=== PATIENT | female | born 1995 | race African-American/Black ===

== ENCOUNTER 2018-11-08 19:50 | Emergency (ER) | payer OTHER, SELFPAY ==
--- OUTSIDE RECORDS SUMMARY | 2018-11-08 19:53 | XMS REPORT | Clinical Summary ---
:1995 Author Organization [facility] Address [address] [place] [address] Care Team Providers Name Role Phone Asked, No Pcp Primary Care Provider Unavailable Allergies No Known Allergies Medications Medication Sig Dispensed Refills Start Date End Date Status etonogestrel/ethinyl Insert into the 0 Active estradiol (NUVARING vagina every 21 VAGL) days. cephalexin (KEFLEX) Take 1 capsule 28 capsule 0 07/24/2018 07/31/2018 500 MG (500 mg total) capsuleIndications: by mouth 4 Pilonidal cyst (four) times a day for 7 days. Active Problems Not on file Encounters Date Type Specialty Care Team Description 08/08/2018 Telephone General Surgery Donna Hanson MA 07/24/2018 Pre-Admit Testing Pre-Admission Shasha Smithop testing Appointment Testing MD Anjana (Primary Dx) 07/24/2018 Office Visit General Surgery Anika Jackson Pilonidal cyst SHARMAINE Sandoval (Primary Dx) after 11/07/2017 Social History Tobacco Use Types Packs/Day Years Used Date Never Smoker Smokeless Tobacco: Never Used Alcohol Use Drinks/Week oz/Week Comments Yes 0-1 Standard drinks or equivalent 0.0 - 0.6 Alcohol Habits Answer Date Recorded How often do you have a drink containing alcohol? 2-3 times a week 07/23/2018 How many drinks containing alcohol do you have on a 1 or 2 07/23/2018 typical day when you are drinking? How often do you have six or more drinks on one Never 07/23/2018 occasion? Physical Activity Answer Date Recorded On average, how many days per week do you engage in moderate to 0 days 2018 strenuous exercise (like walking fast, running, jogging, dancing, swimming, biking, or other activities that cause a light or heavy sweat)? On average, how many minutes do you engage in exercise at this 0 min 2018 level? Stress Answer Date Recorded Do you feel stress - tense, restless, nervous, or anxious, Not at all 2018 or unable to sleep at night because your mind is troubled all the time - these days? Financial Resource Strain Answer Date Recorded How hard is it for you to pay for the very basics like Not hard at all 2018 food, housing, medical care, and heating? Food Insecurity Answer Date Recorded Within the past 12 months, you worried that your food would Never true 2018 run out before you got money to buy more. Within the past 12 months, the food you bought just didn't Never true 2018 last and you didn't have money to get more. Transportation Needs Answer Date Recorded In the past 12 months, has lack of transportation kept you from No 07/23/2018 medical appointments or from getting medications? In the past 12 months, has lack of transportation kept you from No 07/23/2018 meetings, work, or getting things needed for daily living? Sex Assigned at Date Recorded Not on file Job Start Date Occupation Industry Not on file Not on file Not on file Travel History Travel Start Travel End No recent travel history available. Last Filed Vital Signs Vital Sign Reading Time Taken Blood Pressure 122/67 07/24/2018 5:15 PM CDT Pulse 95 07/24/2018 5:15 PM CDT Temperature 36.6 C (97.9 F) 07/24/2018 5:15 PM CDT Respiratory Rate 16 07/24/2018 5:15 PM CDT Oxygen Saturation 98% 07/24/2018 5:15 PM CDT Inhaled Oxygen Concentration - - Weight 82.1 kg (180 lb 14.4 oz) 07/24/2018 5:15 PM CDT Height 152.4 cm (5') 07/24/2018 5:15 PM CDT Body Mass Index 35.33 07/24/2018 5:15 PM CDT Plan of Treatment Health Maintenance Due Date Last Done Comments CHLAMYDIA SCREENING 2012 INFLUENZA VACCINE 12/05/2018 Procedures Procedure Name Priority Date/Time Associated Diagnosis Comments ESTIMATED GFR Routine 07/24/2018 5:35 PM Results for this CDT procedure are in the results section. HCG QUALITATIVE, Routine 07/24/2018 5:35 PM Preop testing Results for this SERUM SCREEN CDT procedure are in the results section. BASIC METABOLIC Routine 07/24/2018 5:35 PM Preop testing Results for this PANEL CDT procedure are in the results section. HC COMPLETE BLD Routine 07/24/2018 5:35 PM Preop testing Results for this COUNT W/AUTO DIFF CDT procedure are in the results section. after 11/07/2017 Results Estimated GFR (07/24/2018 5:35 PM CDT) Pathologist [facility] Estimated GFR >=90 mL/min/1.73 [facility] Comment: m2 HOSPITAL CatergoryUnitsInterpretation G1 >=90 Normal or high G2 60-89Mildly decreased [id number] to moderately decreased [id number] to severely decreased G4 15-29Severely decreased G5 <15Kidney failure The eGFR was calculated using the Chronic Kidney Disease Epidemiology Collaboration (CKD-EPI) equation. Interpretation is based on recommendations of the National Kidney Foundation-Kidney Disease Outcomes Quality Initiative (NKF-KDOQI) published in 2014. Specimen Plasma specimen Performing Organization Address City/State/Zipcode Phone Number [facility] DEPARTMENT OF PATHOLOGY AND [address] [place] [address] GENOMIC MEDICINE [address] [address] CBC with platelet and differential (07/24/2018 5:35 PM CDT) [facility] WBC 7.05 4.50 - 11.00 [facility] k/uL [facility] RBC 4.37 4.20 - 5.50 [facility] m/[facility] HGB 13.1 12.0 - 16.0 [facility] g/dL [facility] HCT 39.3 37.0 - 47.0 % [facility] MCV 89.9 82.0 - 100.0 [facility] MCH 30.0 27.0 - 34.0 pg [facility] MCHC 33.3 31.0 - 37.0 [facility] g/dL [facility] RDW - SD 42.5 37.0 - 55.0 fL [facility] MPV 9.4 8.8 - 13.2 fL [facility] Platelet count 345 150 - 400 k/uL [facility] Nucleated RBC 0.00 /100 WBC [facility] Neutrophils 64.6 39.0 - 69.0 % [facility] Lymphocytes 27.4 25.0 - 45.0 % [facility] Monocytes 5.7 0.0 - 10.0 % [facility] Eosinophils 1.7 0.0 - 5.0 % [facility] Basophils 0.3 0.0 - 1.0 % [facility] Immature granulocytes 0.3Comment: 0.0 - 1.0 % [facility] granulocytes" (promyelocytes , myelocytes, metamyelocytes ) Specimen Blood Performing Organization Address City/State/Zipcode Phone Number [facility] DEPARTMENT OF PATHOLOGY AND [address] [place] [phone] hCG qualitative, serum screen (07/24/2018 5:35 PM CDT) [facility] hCG qualitative, NegativeComment: [facility] serum Sensitivity of [facility] test: 25 mIU/mL Specimen Blood Performing Organization Address City/[facility] Phone Number [facility] DEPART[facility] OF [facility]OLOGY AND [address] [place] [phone] Basic metabolic panel (07/24/2018 5:35 PM CDT) [facility] Sodium 140 135 - 148 mEq/L [facility] Potassium 4.3 3.5 - 5.0 mEq/L [facility] Chloride 103 98 - 112 mEq/L [facility] CO2 25 24 - 31 mEq/L [facility] Anion gap 12@ANIO 7 - 15 mEq/L [facility] BUN 12 6 - 20 mg/dL [facility] Creatinine 0.78 0.50 - 0.90 mg/dL [facility] Glucose 93 65 - 99 mg/dL [facility] Calcium 9.3 8.3 - 10.2 mg/dL [facility] Specimen Plasma specimen Performing Organization Address City/State/Zipcode Phone Number [facility] DEPARTMENT OF PATHOLOGY AND [address] [place] [phone] [address] after 11/07/2017 ([place]) [place] [address] Advance Directives Patient has advance care planning documents on file. For more information, please contact:Candelario Garcia[address] [place] [address]
--- OUTSIDE RECORDS SUMMARY | 2018-11-08 19:53 | XMS REPORT | Continuity of Care Document ---
:1995 Author Organization [email or web address] [facility] Care Team Providers Name Role Phone [address] Unavailable Unavailable Problems No Data Provided for This Section Medications No Data Provided for This Section Allergies, Adverse Reactions, Alerts No Known Medication Allergies Immunizations No Data Provided for This Section Results No Data Provided for This Section Pathology Reports No Data Provided for This Section Diagnostic Reports No Data Provided for This Section Consultation Notes No Data Provided for This Section Discharge Summaries No Data Provided for This Section History and Physicals No Data Provided for This Section Vital Signs No Data Provided for This Section Encounters Location Location Encounter Encounter Reason Attending ADM DC Status Source Details Type Number For Provider Date Date Visit Outpatient [id number] [facility] 05/[address] [facility] [place] [id number] [place] Procedures No Data Provided for This Section Assessment and Plan No Data Provided for This Section Plan of Care No Data Provided for This Section Social History No Data Provided for This Section Family History No Data Provided for This Section Advance Directives No Data Provided for This Section Functional Status No Data Provided for This Section
[2018-11-08] MEDS ORDERED: DIPHENOX/ATROP SULF 1 TAB PO ONE (21:00)
[2018-11-08] MEDS ORDERED: MORPHINE 4 MG/ML SYR ONE (21:01)
[2018-11-08] MEDS ORDERED: ONDANSETRON 4 MG/2 ML VIAL ONE (21:01)
[2018-11-08] MEDS ORDERED: NA CHLORIDE 0.9% 2,000 ML ONE (21:01)
[2018-11-08 21:08] LABS: Absolute Lymphocytes (CBC) 0.7 K/uL (0.7-4.9); Basophils % 0.2 % (0-1.3); Eosinophils % 0.6 % (0-4.4); Hematocrit 45.7 % (36.0-45.0); Lymphocytes % 10.4 % (15.3-44.8); MPV 7.5 fL (7.6-11.3); Monocytes % 5.1 % (3.3-12.3); RBC Red Blood Cell Count 5.15 M/uL (3.86-4.86)
[2018-11-08 21:17] LABS: Urine Appearance CLEAR; Urine Bilirubin NEGATIVE (NEG); Urine Blood 2+ (NEG); Urine Color YELLOW; Urine Glucose NEGATIVE (NEG); Urine Protein TRACE (NEG); Urine Specific Gravity >=1.030 (1.005-1.030); Urine Urobilinogen 0.2 mg/dL (0.2-1.0)
[2018-11-08 21:18] LABS: Urine Microscopic Reflex ORDER UMIC
[2018-11-08 21:22] LABS: Urine Specific Gravity >1.030 (1.005-1.030)
[2018-11-08 21:24] LABS: ALT/SGPT 27 U/L (12-78); AST/SGOT 13 U/L (15-37); Alkaline Phosphatase 63 U/L (45-117); BUN Blood Urea Nitrogen 9 mg/dL (7-18); Bicarbonate 27 mmol/L (21-32); Bilirubin Direct 0.1 mg/dL (0-0.2); Bilirubin Total 0.4 mg/dL (0.2-1.0); Glucose Level 92 mg/dL (74-106); Lipase 94 U/L (73-393); Potassium 3.7 mmol/L (3.5-5.1); Protein, Total 8.6 g/dL (6.4-8.2); Sodium Level 136 mmol/L (136-145)
[2018-11-08 21:43] LABS: Urine Bacteria <20 /HPF (<20); Urine Culture Reflex Order NOT NEEDED; Urine RBC <5 /HPF (NONE SEEN)
--- NOTE | 2018-11-08 22:15 | EDPHYS ---
Physician Documentation [facility] Name: Renetta Robles Age: 23 yrs Sex: Female : 1995 Arrival Date: 11/08/2018 Time: 19:58 Bed 17 Private MD: ED Physician Eric Davis HPI: 11/08 20:38 This 23 yrs old Black Female presents to ER via Ambulatory with complaints of Diarrhea, pkl Vomiting, Abdominal Pain. 20:38 The patient presents to the emergency department with nausea, that is moderate, pkl vomiting, diarrhea. Onset: The symptoms/episode began/occurred last night. Associated signs and symptoms: Pertinent positives: abdominal pain. 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 - Social history:: Smoking status: Patient/guardian denies using tobacco. - Ebola Screening: : No symptoms or risks identified at this time. ROS: 20:38 Eyes: Negative for injury, pain, redness, and discharge, ENT: Negative for injury, pkl pain, and discharge, Neck: Negative for injury, pain, and swelling, Cardiovascular: Negative for chest pain, palpitations, and edema, Respiratory: Negative for shortness of breath, cough, wheezing, and pleuritic chest pain. 20:38 Abdomen/GI: Positive for abdominal pain, nausea, vomiting, and diarrhea, of the right upper quadrant, left upper quadrant, right lower quadrant and left lower quadrant. 20:38 Back: Negative for acute changes. 20:38 : Negative for urinary symptoms. 20:38 MS/extremity: Negative for acute changes. 20:38 Skin: Negative for rash. 20:38 Neuro: Negative for altered mental status. Exam: 20:38 Head/Face: Normocephalic, atraumatic. Eyes: Pupils equal round and reactive to light, pkl extra-ocular motions intact. Lids and lashes normal. Conjunctiva and sclera are non-icteric and not injected. Cornea within normal limits. Periorbital areas with no swelling, redness, or edema. ENT: Nares patent. No nasal discharge, no septal abnormalities noted. Tympanic membranes are normal and external auditory canals are clear. Oropharynx with no redness, swelling, or masses, exudates, or evidence of obstruction, uvula midline. Mucous membranes moist. Neck: Trachea midline, no thyromegaly or masses palpated, and no cervical lymphadenopathy. Supple, full range of motion without nuchal rigidity, or vertebral point tenderness. No Meningismus. Chest/axilla: Normal chest wall appearance and motion. Nontender with no deformity. No lesions are appreciated. Cardiovascular: Regular rate and rhythm with a normal S1 and S2. No gallops, murmurs, or rubs. Normal PMI, no JVD. No pulse deficits. Respiratory: Lungs have equal breath sounds bilaterally, clear to auscultation and percussion. No rales, rhonchi or wheezes noted. No increased work of breathing, no retractions or nasal flaring. 20:38 Abdomen/GI: Bowel sounds: active, Palpation: soft, mild abdominal tenderness, in all quadrants. 20:38 Back: Exam negative for acute changes. 20:38 : Exam negative for acute changes. 20:38 Musculoskeletal/extremity: Exam is negative for acute changes. 20:38 Skin: Exam negative for rash. 20:38 Neuro: Orientation: is normal, Mentation: is normal, Cranial nerves: grossly normal, Motor: is normal. Vital Signs: 20:26 BP 121 / 85; Pulse 111; Resp 16; Temp 100.2; Pulse Ox 100% on R/A; Weight 79.83 kg (R); ak1 Height 5 ft. 0 in. (152.40 cm) (R); Pain 8/10; 21:33 BP 121 / 81; Pulse 104; Resp 16; Pulse Ox 99% on R/A; ak1 20:26 Body Mass Index 34.37 (79.83 kg, 152.40 cm) ak1 MDM: 20:23 Patient medically screened. pkl 22:13 Data reviewed: vital signs, nurses notes, lab test result(s). pkl 11/08 20:37 Order name: Basic Metabolic Panel; Complete Time: 21:59 pkl 11/08 20:37 Order name: CBC with Diff; Complete Time: 21:59 pkl 11/08 20:37 Order name: Creatinine for Radiology; Complete Time: 21:59 pkl 11/08 20:37 Order name: Hepatic Function; Complete Time: 21:59 pkl 11/08 20:37 Order name: Lipase; Complete Time: 21:59 pkl 11/08 20:37 Order name: UA; Complete Time: 21:59 pkl 11/08 21:11 Order name: Urine --Ancillary (enter results); Complete Time: 21:59 cm6 11/08 21:19 Order name: Urine Microscopic Only; Complete Time: 21:59 EDMS 11/08 20:37 Order name: IV Saline Lock; Complete Time: 21:10 pkl 11/08 20:37 Order name: Labs collected and sent; Complete Time: 21:10 pkl Administered Medications: 21:09 Drug: morphine 4 mg Route: IVP; Site: right antecubital; ak1 21:40 Follow up: Response: No adverse reaction ak1 21:09 Drug: Zofran 4 mg Route: IVP; Site: right antecubital; ak1 21:40 Follow up: Response: No adverse reaction ak1 21:09 Drug: LoMOTIL 2 tabs Route: PO; ak1 21:40 Follow up: Response: No adverse reaction ak1 21:10 Drug: NS 0.9% 1000 ml Route: IV; Rate: 1000 ml; Site: right antecubital; ak1 21:39 Follow up: IV Status: Completed infusion; IV Intake: 1000ml ak1 21:10 Drug: NS 0.9% 1000 ml Route: IV; Rate: 125 ml/hr; Site: right antecubital; ak1 22:50 Follow up: IV Status: Order to discontinue infusion ak1 22:14 Drug: NS 0.9% 500 ml Route: IV; Rate: bolus; Site: right antecubital; ak1 22:34 Follow up: IV Status: Completed infusion; IV Intake: 500ml ak1 22:49 Drug: Demerol 50 mg Route: IVP; Site: right antecubital; ak1 22:49 Follow up: Response: No adverse reaction ak1 Disposition: 11/08/18 22:14 Discharged to Home. Impression: Gastroenteritis. - Condition is Stable. - Prescriptions for Zofran 4 mg Oral Tablet - take 1 tablet by ORAL route every 12 hours As needed; 6 tablet. Lomotil 2.5- 0.025 mg Oral Tablet - take 2 tablets by ORAL route once daily As needed; 6 tablet. - Work release form, Medication Reconciliation Form, Thank You Letter, Antibiotic Education, Prescription Opioid Use, Family Work Release form. - Follow up: Private Physician; When: 2 - 3 days; Reason: Re-evaluation by your physician. - Problem is new. - Symptoms have improved. Signatures: Dispatcher [employer] [facility] Eric Davis MD MD pkl Purvi Rodriguez, RN RN ak1 Corrections: (The following items were deleted from the chart) 21:23 21:15 URINE DIPSTICK--ANCILLARY+U.LAB.BRZ ordered. [facility] EDSC 22:53 22:14 11/08/2018 22:14 Discharged to Home. Impression: Gastroenteritis. Condition is ak1 Stable. Forms are Medication Reconciliation Form, Thank You Letter, Antibiotic Education, Prescription Opioid Use. Follow up: Private Physician; When: 2 - 3 days; Reason: Re-evaluation by your physician. Problem is new. Symptoms have improved. pkl
--- NOTE | 2018-11-08 22:15 | ER ---
Nurse's Notes [facility] Name: Renetta Robles Age: 23 yrs Sex: Female : 1995 Arrival Date: 11/08/2018 Time: 19:58 Bed 17 Private MD: Diagnosis: Gastroenteritis Presentation: 11/08 20:27 Presenting complaint: Patient states: N/V/D abd cramps since 199. pt stated vomited 3 ak1 times since 199, multiple episodes of diarrhea. Transition of care: patient was not received from another setting of care. Onset of symptoms was November 08, 2018. Risk Assessment: Do you want to hurt yourself or someone else? Patient reports no desire to harm self or others. Initial Sepsis Screen: Does the patient meet any 2 criteria? No. Patient's initial sepsis screen is negative. Does the patient have a suspected source of infection? No. Patient's initial sepsis screen is negative. Care prior to arrival: None. 20:27 Method Of Arrival: Ambulatory ak1 20:27 Acuity: [place] 3 ak1 Triage Assessment: 20:30 General: Appears uncomfortable, Behavior is calm, cooperative. Pain: Complains of pain ak1 in abdomen. EENT: No signs and/or symptoms were reported regarding the EENT system. Neuro: No deficits noted. Cardiovascular: No deficits noted. Respiratory: No deficits noted. GI: Abdomen is round non-distended, Bowel sounds present X 4 quads. Reports diarrhea, nausea, vomiting. : No signs and/or symptoms were reported regarding the genitourinary system. Derm: No signs and/or symptoms reported regarding the dermatologic system. Musculoskeletal: No signs and/or symptoms reported regarding the musculoskeletal system. 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 - Social history:: Smoking status: Patient/guardian denies using tobacco. - Ebola Screening: : No symptoms or risks identified at this time. Screenin:30 Abuse screen: Denies threats or abuse. Denies injuries from another. Nutritional ak1 screening: No deficits noted. Tuberculosis screening: No symptoms or risk factors identified. Fall Risk None identified. Assessment: 21:11 Reassessment: Patient appears in no apparent distress at this time. No changes from ak1 previously documented assessment. Patient is alert, oriented x 3, equal unlabored respirations, skin warm/dry/pink. see triage assessment. 21:41 Reassessment: Patient appears in no apparent distress at this time. No changes from ak1 previously documented assessment. Patient and/or family updated on plan of care and expected duration. Pain level reassessed. Patient states feeling better. pt resting with eyes closed, resp even and unlabored. . 22:52 Reassessment: pt pain decreased. no vomiting or diarrhea noted while in ER. pt with ak1 steady gait at discharge with family. Vital Signs: 20:26 BP 121 / 85; Pulse 111; Resp 16; Temp 100.2; Pulse Ox 100% on R/A; Weight 79.83 kg (R); ak1 Height 5 ft. 0 in. (152.40 cm) (R); Pain 8/10; 21:33 BP 121 / 81; Pulse 104; Resp 16; Pulse Ox 99% on R/A; ak1 20:26 Body Mass Index 34.37 (79.83 kg, 152.40 cm) ak1 ED Course: 19:58 Patient arrived in ED. es 20:23 Eric Davis MD is Attending Physician. pkl 20:26 Purvi Rodriguez, RN is Primary Nurse. ak1 20:28 Triage completed. ak1 20:30 Patient has correct armband on for positive identification. Bed in low position. Call ak1 light in reach. Side rails up X 1. Pulse ox on. NIBP on. 20:31 Arm band placed on Patient placed in an exam room, on a stretcher, Patient notified of ak1 wait time. 21:11 Initial lab(s) drawn, by me, sent to lab. Urine collected: clean catch specimen, clear. ak1 Inserted saline lock: 20 gauge in right antecubital area, using aseptic technique. Blood collected. 22:51 No provider procedures requiring assistance completed. IV discontinued, intact, ak1 bleeding controlled, No redness/swelling at site. Pressure dressing applied. Administered Medications: 21:09 Drug: morphine 4 mg Route: IVP; Site: right antecubital; ak1 21:40 Follow up: Response: No adverse reaction ak1 21:09 Drug: Zofran 4 mg Route: IVP; Site: right antecubital; ak1 21:40 Follow up: Response: No adverse reaction ak1 21:09 Drug: LoMOTIL 2 tabs Route: PO; ak1 21:40 Follow up: Response: No adverse reaction ak1 21:10 Drug: NS 0.9% 1000 ml Route: IV; Rate: 1000 ml; Site: right antecubital; ak1 21:39 Follow up: IV Status: Completed infusion; IV Intake: 1000ml ak1 21:10 Drug: NS 0.9% 1000 ml Route: IV; Rate: 125 ml/hr; Site: right antecubital; ak1 22:50 Follow up: IV Status: Order to discontinue infusion ak1 22:14 Drug: NS 0.9% 500 ml Route: IV; Rate: bolus; Site: right antecubital; ak1 22:34 Follow up: IV Status: Completed infusion; IV Intake: 500ml ak1 22:49 Drug: Demerol 50 mg Route: IVP; Site: right antecubital; ak1 22:49 Follow up: Response: No adverse reaction ak1 Intake: 21:39 IV: 1000ml; Total: 1000ml. ak1 22:34 IV: 500ml; Total: 1500ml. ak1 Outcome: 22:14 Discharge ordered by . pkl 22:51 Discharged to home ambulatory, with family. ak1 22:51 Condition: good 22:51 Discharge instructions given to patient, family, Instructed on discharge instructions, follow up and referral plans. no drinking with medication, no driving heavy equipment, medication usage, Demonstrated understanding of instructions, follow-up care, medications, Prescriptions given X 2. 22:53 Patient left the ED. ak1 Signatures: Eric Davis MD MD pkJoaquina Akhtar Amber RN RN ak1
[2018-11-08] MEDS ORDERED: MEPERIDINE HCL 50 MG/ML AMP ONE (22:54)
== END 2018-11-08 22:53 | disposition home or self-care (01) ==
LOC: ER 19:50
DX: K52.9 Noninfective gastroenteritis and colitis, unspecified (principal)
CPT/HCPCS: 36415; 80048; 80076; 81003; 81015; 81025; 83690; 85025; 96361; 96374; 96375; 99284; J2175; J2405; J7030